=== PATIENT | female | born 1970 | race Asian ===

== ENCOUNTER 2018-09-17 22:28 | Inpatient (IN) | payer OTHER ==
[~2018-09-17] VITALS: Ht 152.4 cm; Wt 63.3 kg
[~2018-09-17 22:28] MED LIST: ASPI-831 PO; BUPR1TAB34 SL; GLIP2.5T3 PO; INSU100I13 SQ; INSU100I16 SQ; LINA145C PO; LORA-444 PO; ZOLP10TA PO
--- NOTE | 2018-09-18 00:34 | ERD ---
ER Documentation Chief Complaint Chief Complaint ABDOMINAL PAIN X 1 DAY HPI The patient is a 48-year-old female, presenting to the ER because of epigastric abdominal pain that began around 10 AM today, had similar symptom previously from alcohol induced pancreatitis. She drinks moderately last night, denies fever, chills, neck pain, chest pain, diarrhea, constipation, dysuria. She does not smoke, denies illicit drug Past medical history: Anxiety, diabetes mellitus, chronic low back pain, history of pancreatitis, chronic constipation Past surgical history: One , appendectomy, tonsillectomy ROS All systems reviewed and are negative except as per history of present illness. Medications Home Meds Reported Medications Alprazolam* (Xanax*) 0.5 Mg Tab, 0.5 MG PO Q8H PRN for ANXIETY, TAB 09/18/18 Diazepam* (Diazepam*) 5 Mg Tablet, 5 MG PO DAILY, TAB 09/18/18 Biotin (BIOTIN) 1 Mg Capsule, 1 MG PO, CAP 09/18/18 Insulin Detemir* (Levemir*) 100 Unit/1 Ml Insuln.pen, 16 UNIT SQ HS 07/09/13 Buprenorphine Hcl/Naloxone Hcl (BUPRENORPHIN-NALOXON 8-2 MG TB) 1 Each Tab.subl, 1 EACH SL DAILY 07/09/13 Discontinued Reported Medications Aspirin (Aspirin) 81 Mg Chew, 81 MG PO DAILY, TAB.CHEW 02/06/14 Linaclotide (LINZESS) 145 Mcg Capsule, 145 MCG PO DAILY 02/06/14 Lorazepam* (Ativan*) 2 Mg Tablet, 2 MG PO DAILY PRN for ANXIETY 02/06/14 Insulin Aspart (Novolog) 100 U/Ml Insuln.pen, 0 SQ 07/09/13 Glipizide* (Glipizide ER*) 2.5 Mg Tab.er.24, 2.5 MG PO DAILY 07/09/13 Zolpidem Tartrate* (Ambien*) 10 Mg Tablet, 10 MG PO HS 06/01/12 Allergies Allergies: Coded Allergies: No Known Allergy (Unverified , 09/18/18) PMhx/Soc History of Surgery: Yes (TONISILLECTOMY, , APPENDECTOMY) Anesthesia Reaction: No Hx Neurological Disorder: No Hx Respiratory Disorders: Yes (HX SOB) Hx Cardiac Disorders: Yes (HX OF ARRYTHMIA; HX LEFT ARM BLOOD CLOTS) Hx Psychiatric Problems: Yes (ANXIETY) Hx Miscellaneous Medical Probl: No Hx Alcohol Use: No Hx Substance Use: No Hx Tobacco Use: No Physical Exam Vitals Vital Signs Date Temp Pulse Resp B/P (MAP) Pulse Ox O2 O2 Flow FiO2 Time Delivery Rate 09/18/18 73 16 106/76 95 Room Air 04:31 (86) 09/17/18 97.3 87 18 129/87 98 22:39 (101) Physical Exam Const: No acute distress. Head: Atraumatic. Eyes: Normal Conjunctiva. ENT: Normal External Ears, Nose and Mouth. Neck: Full range of motion. No meningismus. Resp: Clear to auscultation bilaterally. Cardio: Regular rate and rhythm. Abd: Soft, non distended, normal bowel sounds, epigastric mild to moderate tenderness, no rigidity/rebound/CVA tenderness Skin: No petechiae or rashes. Back: No midline or flank tenderness. Ext: No cyanosis, or edema. Neur: Awake and alert. No focal deficit Psych: Normal Mood and Affect. Result Diagram: 09/18/1810409/18/18104 Results 24 hrs Laboratory Tests Test 09/18/18 01:05 09/18/18 01:42 09/18/18 01:44 White Blood Count 12.9 10^3/ul Red Blood Count 4.80 10^6/ul Hemoglobin 14.6 g/dl Hematocrit 44.1 % Mean Corpuscular Volume 91.9 fl Mean Corpuscular Hemoglobin 30.4 pg Mean Corpuscular 33.1 g/dl Hemoglobin Concent Red Cell Distribution Width 11.8 % Platelet Count 262 10^3/UL Mean Platelet Volume 10.8 fl Immature Granulocytes % 0.400 % Neutrophils % 76.9 % Lymphocytes % 16.0 % Monocytes % 4.2 % Eosinophils % 2.0 % Basophils % 0.5 % Nucleated Red Blood Cells % 0.0 /100WBC Immature Granulocytes # 0.050 10^3/ul Neutrophils # 9.9 10^3/ul Lymphocytes # 2.1 10^3/ul Monocytes # 0.5 10^3/ul Eosinophils # 0.3 10^3/ul Basophils # 0.1 10^3/ul Nucleated Red Blood Cells # 0.0 10^3/ul Sodium Level 134 mmol/L Potassium Level 4.2 mmol/L Chloride Level 88 mmol/L Carbon Dioxide Level 34 mmol/L Anion Gap 12 Blood Urea Nitrogen 21 mg/dl Creatinine 0.66 mg/dl Est Glomerular Filtrat Rate mL/min > 60 mL/min Glucose Level 242 mg/dl Calcium Level 11.4 mg/dl Total Bilirubin 0.1 mg/dl Direct Bilirubin 0.00 mg/dl Indirect Bilirubin 0.1 mg/dl Aspartate Amino Transf (AST/SGOT) 33 IU/L Alanine 39 IU/L Aminotransferase (ALT/SGPT) Alkaline Phosphatase 43 IU/L Total Protein 7.6 g/dl Albumin 4.6 g/dl Globulin 3.00 g/dl Albumin/Globulin Ratio 1.53 Lipase 850 U/L Urine Opiates Screen Negative Urine Barbiturates Negative Urine Amphetamines Screen Negative Urine Benzodiazepines Screen Positive Urine Cocaine Screen Negative Urine Cannabinoids Negative Ethyl Alcohol Level < 10.0 mg/dl Bedside Urine pH (LAB) 6.5 Bedside Urine Protein (LAB) Negative Bedside Urine Glucose (UA) 0.50% Bedside Urine Ketones (LAB) 1+ Bedside Urine Blood Negative Bedside Urine Nitrite (LAB) Negative Bedside Urine Leukocyte Esterase Negative (L POC Beta HCG, Qualitative NEGATIVE Current Medications Medications Dose Sig/Kali Start Time Status Last (Trade) Ordered Route PRN Stop Time Admin Dose Reason Admin Morphine 2 mg ONCE STAT 09/18/18 DC 09/18/18 Sulfate IV 00:49 01:04 (morphine) 09/18/18 00:50 Ondansetron 4 mg ONCE STAT 09/18/18 DC 09/18/18 HCl (Zofran IV 00:49 01:04 Inj) 09/18/18 00:50 40 mg ONCE ONCE 09/18/18 DC 09/18/18 Pantoprazole IV 01:00 01:04 (Protonix 09/18/18 01:01 Iv) 0.5 mg ONCE STAT 09/18/18 DC 09/18/18 Hydromorphone IV 03:06 03:20 HCl 09/18/18 03:07 (Dilaudid) Sodium 1,000 ml @ Q1H ONCE 09/18/18 DC 09/18/18 Chloride 1,000 mls/hr IV 03:30 03:46 09/18/18 04:29 Procedures/MDM MEDICAL MAKING DECISION: The patient is a 48-year-old female, presenting with acute alcohol induced pancreatitis, acute hypercalcemia, acute hyperglycemia. She was treated with morphine 2 mg IV, Dilaudid 1 mg IV for pain, Zofran for medical IV for nausea, Protonix 40 mg IV for epigastric pain and 1 L saline for dehydration and acute hyperglycemia with good response. The differential diagnoses considered include but are not limited to cholelithiasis, cholecystitis, choledocholithiasis, cholangitis, pancreatitis, hepatitis, gastritis, peptic ulcer disease, gastric ulcer, cystitis, diverticulitis, partial small bowel obstruction. Departure Diagnosis: Primary Impression: Pancreatitis Additional Impression: Hypercalcemia Condition: Stable Comments I discussed the findings with the patient. I discussed the patient with her physician Dr Caballero at 4:45 am. who was made aware of the lab, the treatment, the patient condition. The patient is admitted to [facility] Disclaimer: Inadvertent spelling and grammatical errors are likely due to EHR/dictation software use and do not reflect on the overall quality of patient care. Also, please note that the electronic time recorded on this note does not necessarily reflect the actual time of the patient encounter. KRISSY BARNEY MD Sep 18, 2018 00:34
[2018-09-18] MEDS ORDERED: morphine 2 MG INJ IV STA (00:49)
[2018-09-18] MEDS ORDERED: ONDANSETRON 4 MG INJ IV STA (00:49)
[2018-09-18] MEDS ORDERED: PANTOPRAZOLE 40 MG INJ IV ONE (01:00)
[2018-09-18] MEDS ORDERED: DIAZ5TAB4 PO (02:29)
[2018-09-18] MEDS ORDERED: ALPR0.5T PO (02:29)
[2018-09-18] MEDS ORDERED: BIOT1CAP3 PO (02:29)
[2018-09-18] MEDS ORDERED: HYDROmorphONE 0.5 MG/0.5 ML SYG IV STA (03:06)
[2018-09-18] MEDS ORDERED: SOD CHLORIDE 0.9% 1,000 ML IV ONE (03:30)
[2018-09-18] MEDS ORDERED: MULT-761 PO (06:28)
[2018-09-18 06:39] VITALS: BP 119/71; PULSE 74; RESP 18
[2018-09-18 07:35] VITALS: BP 98/56; PULSE 76; RESP 18
[2018-09-18] MEDS ORDERED: ACETAMINOPHEN 325 MG TAB PO PRN (08:30)
[2018-09-18] MEDS ORDERED: ONDANSETRON 4 MG INJ IV PRN (08:30)
[2018-09-18] MEDS ORDERED: HYDROCODONE/APAP (5/325) TAB PO PRN (08:30)
[2018-09-18] MEDS ORDERED: NACL 0.9% 3 ML SYG IV SCH (08:30)
[2018-09-18 08:45] VITALS: BP 113/67; PULSE 75
[2018-09-18] MEDS: HYDROmorphONE 1 MG/ML SYG IV PRN ×2 (08:46→12:08)
[2018-09-18] MEDS ORDERED: GLUCOSE GEL 15 GRAM TUBE PO PRN ×2 (09:00)
[2018-09-18] MEDS ORDERED: GLUCOSE GEL 15 GRAM TUBE BUCCAL PRN (09:00)
[2018-09-18] MEDS ORDERED: DEXTROSE 50% 50 ML SYRINGE IV PRN ×2 (09:00)
[2018-09-18] MEDS ORDERED: THIAMINE 200 MG INJ IM SCH (09:00)
[2018-09-18] MEDS ORDERED: GLUCAGON 1 MG INJ IM PRN (09:00)
[2018-09-18] MEDS: INSULIN GLARGINE [LANTus] (100 UNITS/ML) SYG SC SCH (09:53)
[2018-09-18] MEDS: SOD CHLORIDE 0.9% 1,000 ML IV SCH ×4 (09:54→23:21)
[2018-09-18 10:21] VITALS: Ht 152.4 cm; Wt 63.3 kg
[2018-09-18] MEDS: LORAZEPAM 2 MG INJ IV PRN ×3 (11:06→23:15)
[2018-09-18] MEDS: INSULIN ASPART [NOVOLOG] 3 ML PEN SC SCH ×3 (12:00→20:59)
[2018-09-18] MEDS ORDERED: HYDROmorphONE 2 MG/ML SYG IV PRN (14:00)
[2018-09-18 14:30] VITALS: BP 101/64; PULSE 62; RESP 16
[2018-09-18] MEDS: HYDROmorphONE 2 MG/ML SYG IV PRN ×2 (18:26→21:29)
[2018-09-18 20:00] VITALS: BP 114/75; PULSE 65; RESP 18
--- NOTE | 2018-09-18 21:19 | HP ---
DATE OF ADMISSION: 09/18/2018 REASON FOR ADMISSION: Abdominal pain, acute pancreatitis, rule out gastritis. HISTORY OF PRESENT ILLNESS: The patient is an unfortunate 48-year-old female originally from [place] w ith history of spinal stenosis, low back pain, fibromyalgia, pancreatitis in the past, diabetes melli tus, chronic pain syndrome, and history of heavy alcohol use more recently is more mild to moderate. The patient also is going through a lot of stress at home. The patient states that she has been dri nking about 2 glasses of wine a day or 2 glasses of beer a day. She presents now to the emergency de partment as she has been also under a lot of stress, complaining of increase of epigastric increased epigastric abdominal pain. Upon evaluation in the emergency department, patient underwent various di agnostic tests. A gallbladder ultrasound revealed questionable small amount of sludge in the gallbla dder without evidence of cholelithiasis, no gallbladder wall thickening or pericholecystic fluid iden tified. Labs did reveal elevated lipase at 850. Glucose was 242. Urinalysis was essentially negati ve. Ultimately, it was decided to admit the patient for further care for acute pancreatitis and abdo cammie pain for evaluation. The patient complaining of dry mucous membranes. Mid umbilical area type of pain for 1 day. The patient did undergo an EGD procedure back in 2013, which at that time showed gastritis. The patient denies any fever or chills. Denies any weakness or numbness. PAST MEDICAL HISTORY: Includes chronic back pain, spinal stenosis, diabetes mellitus, fibromyalgia, anxiety disorder, hypothyroidism, dyslipidemia, alcohol use, depression. SURGICAL HISTORY: Appendectomy, tonsillectomy, , sinus surgery. ALLERGIES: 1. PREVIOUSLY, PATIENT CANNOT TOLERATE GENTAMICIN 2. METFORMIN. 3. VANCOMYCIN. SOCIAL HISTORY: The patient is +1 son. MEDICATIONS: Reviewed and include: 1. Invokana. 2. Lantus 16 units at night. 3. Glipizide. 4. Amitiza 5. Ambien p.r.n. 6. Colace. 7. Suboxone. REVIEW OF SYSTEMS: Per HPI. PHYSICAL EXAMINATION: VITAL SIGNS: Temperature 98.1, pulse 62, respirations 16, blood pressure 101/64, saturation 96%. GENERAL: In no acute distress. Patient is pale. HEENT: Dry mucous membranes. Slight prominent thyroid area but this is chronic. CARDIOVASCULAR: S1, S2, regular rate. LUNGS: Clear. ABDOMEN: Soft. Currently abdomen has no pain. She did state that she received pain medication, not too long ago. EXTREMITIES: No significant edema of the lower extremities. LABORATORY DATA: White count 12.9, hemoglobin 14.6, hematocrit 44, platelets of 62 with normal diffe rential. Chemistry: Sodium 134, potassium 4.2, chloride 88, bicarbonate 34, BUN is 21.0, creatinine of 0.66 and glucose 42, beta HCG negative. Lipase is 850, elevated. Tox screen positive for benzod iazepine, opiates negative. Alcohol negative. EGD biopsy shows no evidence of dysplasia. No H. pylo ri. There is chronic gastritis. ASSESSMENT AND PLAN: This is an unfortunate for a 48-year-old female with history of diabetes mellit us, alcohol use, constipation, chronic pain syndrome who presented with abdominal pain for 1 day. 1. Abdominal pain, likely due to acute pancreatitis. The patient will be hydrated aggressively with IV fluids. Pain control will be provided. Diet to be advanced slowly as tolerated. 2. Chronic pain issue with above pancreatitis. Pain control will be provided. 3. The patient will be placed on Protonix for GI prophylaxis. 4. Diabetes mellitus. Accu-Cheks with insulin coverage will be provided. Check hemoglobin A1c. 5. Anxiety. Will consult also older adult social work specialist. Antidepressant will be given and anxiolytics with Ati van as needed. 6. Out of bed activity as tolerated. 7. Monitor overall symptomatology. 8. Mild leukocytosis. Observe, monitor for fevers or worsening leukocytosis. May consider CT scan if needed. We will follow closely. Dictated By: ZURDO CRAFT/JULIUS Conf#: [id number] DID#: [id number]
[2018-09-19] MEDS: DIPHENHYDRAMINE 50 MG INJ IV PRN ×2 (00:15→04:22)
[2018-09-19] MEDS: HYDROmorphONE 2 MG/ML SYG IV PRN ×4 (00:31→09:30)
[2018-09-19 02:00] VITALS: BP 96/62; PULSE 67; RESP 18
[2018-09-19] MEDS ORDERED: ACCU-CHEK XX SCH (02:00)
[2018-09-19] MEDS: SOD CHLORIDE 0.9% 1,000 ML IV SCH ×2 (03:28→06:09)
[2018-09-19] MEDS: LORAZEPAM 2 MG INJ IV PRN ×2 (05:15→09:57)
[2018-09-19] MEDS ORDERED: PANTOPRAZOLE 40 MG INJ IV SCH (06:00)
[2018-09-19] MEDS: INSULIN ASPART [NOVOLOG] 3 ML PEN SC SCH (08:00)
[2018-09-19 08:09] VITALS: BP 105/74; PULSE 80; RESP 16
[2018-09-19] MEDS: INSULIN GLARGINE [LANTus] (100 UNITS/ML) SYG SC SCH (08:43)
[2018-09-19] MEDS ORDERED: THIAMINE 100 MG TAB PO SCH (09:00)
--- NOTE | 2018-09-19 09:03 | PDOCDIS ---
Discharge Instructions CONDITION [id number] Patient Condition: [id number] Stable FOLLOW UP/APPOINTMENTS Follow-up Plan follow up with PCP, psychiatry, and pain specialist, no alcohol!!!! ZURDO ANDERSON MD Sep 19, 2018 09:03
[2018-09-19] MEDS ORDERED: HYDR-3980 PO (09:16)
[2018-09-19] MEDS ORDERED: PANT40TA3 PO (09:16)
[2018-09-19] MEDS ORDERED: ONDA4TAB8 PO (09:16)
[2018-09-19] MEDS ORDERED: CASPOFUNGIN 50 MG in SOD CHLORIDE 0.9% 250 ML IVPB SCH (09:30)
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
== END 2018-09-19 10:15 | disposition home or self-care (01) | DRG 440 ==
LOC: E/R 22:28 → PP2 09-18 04:48
PROVIDERS: ADMIT Internal Medicine; ATTEND Internal Medicine
DX: K85.90 Acute pancreatitis without necrosis or infection, unspecified (principal); E11.9 Type 2 diabetes mellitus without complications; K59.09 Other constipation; G89.4 Chronic pain syndrome; E78.5 Hyperlipidemia, unspecified; E03.9 Hypothyroidism, unspecified; F41.9 Anxiety disorder, unspecified; F10.10 Alcohol abuse, uncomplicated; M79.7 Fibromyalgia; F32.9 Major depressive disorder, single episode, unspecified; Z79.4 Long term (current) use of insulin; D72.829 Elevated white blood cell count, unspecified
CPT/HCPCS: 36415; 71045; 76705; 80053; 80061; 80307; 81003; 81025; 82962; 83036; 83690; 83735; 84100; 84443; 85025; 96361; 96374; 96375; C9113; J1170; J1200; J1815; J2060; J2270; J2405; J3411; J7030